=== PATIENT | male | born 1970 | race Two or more races ===

== ENCOUNTER 2025-05-22 19:51 | Emergency (ER) | payer BC, OTHER ==
[~2025-05-22] VITALS: Ht 200.7 cm; Wt 127.3 kg
[2025-05-22 20:21] LABS: Hematocrit 48.7 % (41.0-53.0); Hemoglobin 16.7 g/dL (13.5-17.5); Mean Corpuscular Hemoglobin 29.3 pg (28.0-32.0); Mean Corpuscular Volume 85.4 fL (80.0-100.0); Nucleated Red Blood Cells % 0.0 %
--- NOTE | 2025-05-22 20:24 | ED.PDOC ---
History of Present Illness HPI Comments 54 y/o obese M presents with 32x hour history of left sided chest and lower abdominal pain and palpitations. Patient endorses on unprovoked onset of symptoms, that have been constant since. Chest pain is a 6-7/10 in severity and pressure-like in quality. Patient also reports intermittent constipation episode s for the past few days in addition to 1x isolated episode of self-induced vomiting in an attempt to relieve pain to no avail. He reports on being sent from [facility] facility after being found with abnormal EKG and elevated WBC of 15.8 when being evaluated for symptoms, earlier, today. Patient reports being given 1g Ivanz IV and 325mg ASA PO at facility prior to leaving. Medical history of aortic aneurysm. Medications: lisinopril-HCTZ, atorvastatin, metformin, Mounjaro, and Jardiance. Denies any nausea, vomiting, dizziness, shortness of breath, or further associated symptoms. Chief Complaint: Chest Pain Time Seen by MD: 20:00 Reviewed Notes: Nurses Notes, Medications, Allergies Allergies: Coded Allergies: NO KNOWN ALLERGIES (Unverified , 05/22/25) Information Source: Patient Mode of Arrival: Ambulatory Severity: Moderate Timing: Days Duration: Since onset Prehospital treatment: 12 Lead EKG Past Medical History PAST MEDICAL HISTORY: DM Past Medical History (Other): enlarged aorta Surgical History: Denies all surgeries Family History Family History: Unknown Social History Smoker: Non-Smoker Alcohol: Denies ETOH Use Drugs: Denies Drug Use Lives In: Home All Other Systems: Reviewed and Negative (Comprehensive systems review obtained and negative except for what is stated in the HPI.) Physical Exam General Appearance: No Apparent Distress, Obese HEENT: Normal ENT Inspection, Pharynx Normal, TMs Normal Neck: Full Range of Motion, Non-Tender, Normal, Normal Inspection Respiratory: Chest Non-Tender, Lungs Clear, No Accessory Muscle Use, No Respiratory Distress, Normal Breath Sounds Cardiovascular: No Edema, No JVD, No Murmur, No Gallop, Normal Peripheral Pulses, Tachycardia, Other (Regular rhythm) Breast Exam: Deferred Gastrointestinal: No Organomegaly, Non Tender, No Pulsatile Mass, Normal Bowel Sounds, Soft Genitalia: Deferred Pelvic: Deferred Rectal: Deferred Extremities: No calf tenderness, Normal capillary refill, Normal inspection, Normal range of motion, Non-tender, No pedal edema Musculoskeletal : Apperance: Normal Neurologic: Alert, make up girl II-XII nml as Tested, No Motor Deficits, Normal Affect, Normal Mood, No Sensory Deficits Cerebellar Function: Normal Reflexes: Normal Skin: Dry, Normal Color, Warm Lymphatic: No Adenopathy Was a procedure done? Was a procedure done?: No EKG EKG : Pulse Rate (adult): 117 [place]: Normal Cardiac Rhythm: ST Block: None Hypertrophy: None ST: Normal Differential Dx Considerations may include: VA, PE, ACS, URI, PNA, anxiety, angina, costochondritis, pericarditis, viral syndrome, among others X-Ray, Labs, Meds, VS Vital Signs Date Time Temp Pulse Resp B/P (MAP) Pulse Ox O2 Delivery O2 Flow Rate FiO2 05/22/25 23:07 103 18 125/71 (89) 99 05/22/25 22:51 100 05/22/25 21:40 99.6 116 18 103/66 (78) 96 99.6 05/22/25 21:40 116 18 96 Room Air 05/22/25 20:57 124 05/22/25 20:24 117 05/22/25 20:03 99.4 129 20 114/81 (92) 96 99.4 05/22/25 19:56 117 Lab Test 05/22/25 23:20 05/22/25 21:00 05/22/25 20:24 05/22/25 20:06 Range/Units Troponin I High Sensitivity 6 6 6 </=54 ng/L Lactic Acid Level 1.1 0.4-2.0 mmol/L White Blood Count 16.3 H 4.4-10.8 10^3/uL Red Blood Count 5.70 4.5-5.90 10^6/uL Hemoglobin 16.7 13.5-17.5 g/dL Hematocrit 48.7 41.0-53.0 % Mean Corpuscular Volume 85.4 80.0-100.0 fL Mean Corpuscular Hemoglobin 29.3 28.0-32.0 pg Mean Corpuscular Hemoglobin Concent 34.3 32.0-36.0 g/dL Red Cell Distribution Width 14.2 11.8-14.3 % Platelet Count 263 140-450 10^3/uL Mean Platelet Volume 7.9 6.9-10.8 fL Neutrophils (%) (Auto) 81.0 H 37.0-80.0 % Lymphocytes (%) (Auto) 9.8 L 10.0-50.0 % Monocytes (%) (Auto) 8.9 0.0-12.0 % Eosinophils (%) (Auto) 0.1 0.0-7.0 % Basophils (%) (Auto) 0.2 0.0-2.0 % Neutrophils # (Auto) 13.2 H 1.6-8.6 10 ^3/uL Lymphocytes # (Auto) 1.6 0.4-5.4 10 ^3/uL Monocytes # (Auto) 1.5 H 0-1.3 10 ^3/uL Eosinophils # (Auto) 0 0-0.8 10 ^3/uL Basophils # (Auto) 0 0-0.2 10 ^3/uL Nucleated Red Blood Cells 0.0 % Sodium Level 136 136-145 mmol/L Potassium Level 4.1 3.5-5.1 mmol/L Chloride Level 99 98-107 mmol/L Carbon Dioxide Level 28 20-31 mmol/L Anion Gap 9 5-15 Blood Urea Nitrogen 18 9-23 mg/dL Creatinine 0.91 0.700-1.30 mg/dL Glomerular Filtration Rate Calc 100 >90 mL/min BUN/Creatinine Ratio 19.8 10.0-20.0 Serum Glucose 111 H 74-106 mg/dL Calcium Level 10.4 8.7-10.4 mg/dL Current Medications Medications (Trade) Dose Ordered Sig/Winston Route Start Time Stop Time Status Last Admin Sodium Chloride 2,000 ml @ 1,000 mls/hr Q2H ONCE IV 05/22/25 20:15 05/22/25 22:14 DC 05/22/25 21:45 Sodium Chloride 1,000 ml @ 1,000 mls/hr Q1H ONCE IV 05/22/25 21:15 05/22/25 22:14 DC 05/22/25 21:[address] [address] Ph: [phone] DIAGNOSTIC IMAGING Diagnostic Imaging Report : [id number] Signed PATIENT: SANG TAVARES ACCT: [id number] UNIT: [id number] : 1970 LOC: ER ROOM / BED: / AGE / SEX: 54 / M ADM STATUS: REG ER SERVICE 03 ORDERING PHYSICIAN: ASHLI OKEEFE MD PROCEDURE(s): CXRP - CHEST PORTABLE REASON: chest pain ORDER NUMBER(s): [id number], ACCESSION NUMBER(s): [id number] EXAM: XY CHEST PORTABLE CLINICAL HISTORY: chest pain TECHNIQUE: Single AP view of the chest WID: COMPARISON: None FINDINGS: Lines and tubes: None Chest: The heart size and pulmonary vasculature is within normal limits. No pleural effusion, pneumothorax, or consolidation. The osseous structures are grossly intact. IMPRESSION: No acute cardiopulmonary abnormality. ATED BY: AMBER DOMÍNGUEZ MD DICTATED DATE/TIME: 05/22/252037 SIGNED BY: AMBER DOMÍNGUEZ MD SIGNED DATE/TIME: 05/22/252037 CC: Time of 1ST Reevaluation: 20:30 Reevaluation 1ST: Unchanged Patient Education/Counseling: Diagnosis, Treatment Family Education/Counseling: No Family Present Additional Information Previous visits reviewed: N/A The following tests were ordered, and results were reviewed by me: CXR, EKG, CBC, BMP, UA, blood culture, lactic acid w/ reflex Additional Information was gathered from interviewing the following independent historians: N/A I reviewed and agreed with the following test results read by other providers: CXR I discussed treatment and results with medical personnel and: patient SEPSIS Sepsis Screen Physician Orders Electrocardigram (05/22/25 19:56) Electrocardigram (05/22/25 20:56) Electrocardigram (05/22/25 22:56) Blood Culture (05/22/25 20:04) Chest Portable (05/22/25 20:04) Urinalysis (05/22/25 20:41) Ct Ab Pel With Iv Con Only (05/22/25 21:05) Vital Signs Date Time Temp Pulse Resp B/P (MAP) Pulse Ox O2 Delivery O2 Flow Rate FiO2 05/22/25 23:07 103 18 125/71 (89) 99 05/22/25 22:51 100 05/22/25 21:40 99.6 116 18 103/66 (78) 96 99.6 05/22/25 21:40 116 18 96 Room Air 05/22/25 20:57 124 05/22/25 20:24 117 05/22/25 20:03 99.4 129 20 114/81 (92) 96 99.4 05/22/25 19:56 117 Laboratory Tests Test 05/22/25 20:06 05/22/25 20:24 White Blood Count 16.3 10^3/uL (4.4-10.8) H Lactic Acid Level 1.1 mmol/L (0.4-2.0) Medications Medications Dose Ordered Sig/Winston Route Start Time Stop Time Status Last Admin Dose Admin Sodium Chloride 1,000 ml @ 1,000 mls/hr Q1H ONCE IV 05/22/25 21:15 05/22/25 22:14 DC 05/22/25 21:45 Sodium Chloride 2,000 ml @ 1,000 mls/hr Q2H ONCE IV 05/22/25 20:15 05/22/25 22:14 DC 05/22/25 21:45 Departure 1 Departure Time of Disposition: 01:04 (Patient with chest pain abdominal pain. CT scan has now resulted yet. Patient eloped prior to workup completion.) Impression: Primary Impression: Acute chest pain Additional Impression: Intractable abdominal pain Disposition: LEFT AWOL/ELOPED Condition: Serious Critical Care Note Critical Care Time?: Yes Critical care comment: Acute chest pain Authorized and Performed by: Ashli Okeefe MD Total critical care time: Approximately 39 minutes Due to a high probability of clinically significant, life threatening deterioration, the patient required my highest level of preparedness to intervene emergently and I personally spent this critical care time directly and personally managing the patient. This critical care time included obtaining a history; examining the patient; pulse oximetry; ordering and review of studies; arranging urgent treatment with development of a management plan; evaluation of patient's response to treatment; frequent reassessment; and, discussions with other providers. This critical care time was performed to assess and manage the high probability of imminent, life-threatening deterioration that could result in multi-organ failure. It was exclusive of separately billable procedures and treating other patients and teaching time. Please see my other sections and the rest of the note for further information on patient assessment and treatment. Stability Stability form required: No Heart Score Heart Score: Heart Score Response (Comments) Value History Moderate Suspicious 1 EKG Normal 0 Age 45-64 1 Risk Factors 1 or 2 risk factors 1 Troponin Normal limit 0 Total 3 I personally scribed for ASHLI OKEEFE MD ([email or web address]) on 05/22/25 at 20:24. Electronically submitted by Addison Mcdonough ([email or web address]). I personally scribed for ASHLI OKEEFE MD ([email or web address]) on 05/22/25 at 21:25. Electronically submitted by Addison Mcdonough ([email or web address]). ASHLI OKEEFE MD May 22, 2025 20:24
[2025-05-22 20:28] LABS: Chloride 99 mmol/L (98-107); Potassium 4.1 mmol/L (3.5-5.1); Sodium 136 mmol/L (136-145)
[2025-05-22 20:29] LABS: Anion Gap 9 (5-15); Carbon Dioxide 28 mmol/L (20-31)
[2025-05-22 20:34] LABS: BUN/Creatinine Ratio 19.8 (10.0-20.0); Blood Urea Nitrogen 18 mg/dL (9-23)
--- NOTE | 2025-05-22 20:41 | DVH ---
EXAM: XY CHEST PORTABLE CLINICAL HISTORY: chest pain TECHNIQUE: Single AP view of the chest WID: COMPARISON: None FINDINGS: Lines and tubes: None Chest: The heart size and pulmonary vasculature is within normal limits. No pleural effusion, pneumothorax, or consolidation. The osseous structures are grossly intact. IMPRESSION: No acute cardiopulmonary abnormality.
[2025-05-22 20:45] LABS: Calcium 10.4 mg/dL (8.7-10.4); Glucose 111 mg/dL (74-106)
[2025-05-22] MEDS: IOHEXOL 300 MG/ML 100ML BOTTLE IJ ONE (21:22)
[2025-05-22 21:40] VITALS: TEMP 99.6
[2025-05-22] MEDS: SODIUM CHLORIDE 0.9% 2,000 ML IV ONE (21:45)
[2025-05-22] MEDS: SODIUM CHLORIDE 0.9% 1,000 ML IV ONE (21:45)
[2025-05-22 23:07] VITALS: BP 125/71; PULSE 103; RESP 18; O2SAT 99
--- NOTE | 2025-05-23 01:15 | DVH ---
CLINICAL HISTORY: abdominal pain TECHNIQUE: CT of the abdomen and pelvis was performed with intravenous contrast. 90 mL Omnipaque 300 injected. This exam was performed according to our departmental dose optimization program. Up-to-date CT equipment and radiation dose reduction techniques are utilized as appropriate. CTDIVol: 25.56 mGy DLP: 1479.27 mGy-cm WID: COMPARISON: None FINDINGS: Lower Thorax: Trace pericardial fluid. Normal-sized heart. Lung bases are clear. Liver and Biliary system: Mild hepatomegaly, otherwise unremarkable. Spleen: Mild splenomegaly. Hypodense lesion in the anterior spleen. Adrenal Glands and Kidneys: Unremarkable. Pancreas and Retroperitoneum: Enlargement of the pancreas with peripancreatic soft tissue stranding m ost pronounced about the distal body . No retroperitoneal fluid collection or lymphadenopathy. Aorta and Major Vessels: Aortoiliac vessels are patent and normal caliber with mild calcified atheros clerotic plaque. Bowel, Mesentery and Peritoneal space: Normal caliber small and large bowel. Mild distal colonic dive rticulosis. Normal appendix. No free air or fluid collection. Pelvis: Unremarkable. Abdominal wall and Osseous Structures: Small fat containing bilateral inguinal and umbilical hernias. Multilevel lower thoracic and lumbar spondylosis. Marked degenerative disc space narrowing at L3-L4 , L4-L5, and L5-S1. No destructive osseous lesion. IMPRESSION: 1. Acute interstitial edematous pancreatitis in the distal body. 2. Mild hepatosplenomegaly. 3. Mild distal colonic diverticulosis.
--- NOTE | 2025-05-23 01:36 | ECG ---
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
--- NOTE | 2025-05-23 06:13 | ECG ---
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
--- NOTE | 2025-05-23 06:14 | ECG ---
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
[2025-05-23] MEDS ORDERED: EMPA1TAB PO (20:39)
[2025-05-23] MEDS ORDERED: TIRZ15IN (20:39)
== END 2025-05-23 00:30 | disposition left against medical advice (07) ==
LOC: ER 19:51
DX: R07.89 Other chest pain (principal); R10.30 Lower abdominal pain, unspecified; E11.9 Type 2 diabetes mellitus without complications
CPT/HCPCS: 36415; 71045; 74177; 80048; 83605; 84484; 85025; 87040; 93005; 96360; 99285; J7030; Q9967

== ENCOUNTER 2025-05-23 10:50 | Inpatient (IN) | payer BC ==
[~2025-05-23] VITALS: Ht 200.7 cm; Wt 129.0 kg
--- NOTE | 2025-05-23 11:19 | ED.PDOC ---
HPI Comments This is a 54-year-old male who comes in with chief complaint of chest pain. The patient states that the chest pain started approximately 48 hours ago while he was driving. He has a history of chest pain but has never been this bad. The patient states that the pain is sharp and rated as a 7/10. There has been no radiation, nausea, vomiting or shortness for breath. The patient is having some lower abdominal pain as well. He was seen yesterday in our emergency department's and had a workup done. The patient stated that he had to leave but now the pain has been persistent so he had to return to the emergency department's for evaluation. The patient was also seen yesterday at an urgent care and was told that he had an infection based on leukocytosis and was given an injection of an unknown antibiotic. Chief Complaint: Chest Pain Time Seen by MD: 10:56 Reviewed Notes: Nurses Notes, Medications, Allergies (No allergies to medications) Allergies: Coded Allergies: NO KNOWN ALLERGIES (Unverified , 05/22/25) Information Source: Patient Mode of Arrival: Ambulatory Severity: Moderate Timing: Days Duration: Since onset Prehospital treatment: None Location: Chest (L) Radiation: No Radiation Quality: Squeezing, Pressure Onset: At Rest Cardiac Risk Factors: Family History, HTN, Diabetes PE Risk Factors: None History of: Similar pain in past Modifying Factors: Nothing Associated Signs and Symptoms: None Past Medical History PAST MEDICAL HISTORY: DM, HTN Surgical History: Denies all surgeries Family History Family History: Family hx of DM, Family hx of Cancer, Family hx of heart jacy Social History Smoker: Quit Greater Than 1 Year Alcohol: Occasionally Drugs: Denies Drug Use Lives In: Home Constitutional: denies: chills, diaphoresis, fatigue, fever, malaise, sweats, weakness, others EENTM: denies: blurred vision, double vision, ear bleeding, ear discharge, ear drainage, ear pain, ear ringing, eye pain, eye redness, hearing loss, mouth pain, mouth swelling, nasal discharge, nose bleeding, nose congestion, nose pain, photophobia, tearing, throat pain, throat swelling, voice changes, others Respiratory: denies: cough, hemoptysis, orthopnea, SOB at rest, shortness of breath, SOB with excertion, stridor, wheezing, others Cardiovascular: reports: chest pain; denies: dizzy spells, diaphoresis, Dyspnea on exertion, edema, irregular heart beat, left arm pain, lightheadedness, palpitations, PND, syncope, others Gastrointestinal: reports: abdominal pain; denies: abdomen distended, blood streaked bowels, constipated, diarrhea, dysphagia, difficulty swallowing, hematemesis, melena, nausea, poor appetite, poor fluid intake, rectal bleeding, rectal pain, vomiting, others Genitourinary: denies: burning, dysuria, flank pain, frequency, hematuria, in continence, penile discharge, penile sore, pain, testicle pain, testicle swelling, urgency, others Neurological: denies: dizziness, fainting, headache, left sided numbness, left sided weakness, numbness, paresthesia, pre-existing deficit, right sided numbness, right sided weakness, seizure, speech problems, tingling, tremors, weakness, others Musculoskeletal: denies: back pain, gout, joint pain, joint swelling, muscle pain, muscle stiffness, neck pain, others Integumetry: denies: bruises, change in color, change in hair/nails, dryness, laceration, lesions, lumps, rash, wounds, others Allergic/Immunocompromised: denies: Difficulty Healing, Frequent Infections, Hives, Itching, others Hematologic/Lymphatic: denies: anemia, blood clots, easy bleeding, easy bruising, swollen glands, others Endocrine: denies: excessive hunger, excessive sweating, excessive thirst, excessive urination, flushing, intolerance to cold, intolerance to heat, unexplained weight gain, unexplained weight loss, others Psychiatric: denies: anxiety, bipolar disorder, depression, hopeless, panic disorder, schizophrenia, sleepless, suicidal, others Physical Exam General Appearance: Moderate Distress, Obese HEENT: Normal ENT Inspection, Pharynx Normal, TMs Normal Neck: Full Range of Motion, Non-Tender, Normal, Normal Inspection Respiratory: Chest Non-Tender, Lungs Clear, No Accessory Muscle Use, No Respiratory Distress, Normal Breath Sounds Cardiovascular: No Edema, No JVD, No Murmur, No Gallop, Normal Peripheral Pulses, Regular Rate/Rhythm Breast Exam: Deferred Gastrointestinal: Epigastric, No Organomegaly, No Pulsatile Mass, Normal Bowel Sounds, Soft, Tenderness Genitalia: Deferred Pelvic: Deferred Rectal: Deferred Extremities: No calf tenderness, Normal capillary refill, Normal inspection, Normal range of motion, Non-tender, No pedal edema Musculoskeletal : Apperance: Normal Neurologic: Alert, co teacher II-XII nml as Tested, No Motor Deficits, Normal Affect, Normal Mood, No Sensory Deficits Cerebellar Function: Normal Reflexes: Normal Skin: Dry, Normal Color, Warm Lymphatic: No Adenopathy EKG EKG : Pulse Rate (adult): 104 Ward: Normal Cardiac Rhythm: ST Block: None ST: Nonsp Was a procedure done? Was a procedure done?: No CP Differential Dx Differential Diagnosis: Angina, [place], Pulmonary Embolus Differential Diagnosis: CHF Differential Diagnosis: Pericarditis X-Ray, Labs, Meds, VS Vital Signs Date Time Temp Pulse Resp B/P (MAP) Pulse Ox O2 Delivery O2 Flow Rate FiO2 05/23/25 11:19 104 05/23/25 11:04 97.8 112 18 120/72 (88) 95 97.8 05/23/25 10:56 109 Lab Test 05/23/25 12:11 05/23/25 11:13 Range/Units White Blood Count 14.5 H 4.4-10.8 10^3/uL Red Blood Count 5.43 4.5-5.90 10^6/uL Hemoglobin 16.1 13.5-17.5 g/dL Hematocrit 46.4 41.0-53.0 % Mean Corpuscular Volume 85.4 80.0-100.0 fL Mean Corpuscular Hemoglobin 29.7 28.0-32.0 pg Mean Corpuscular Hemoglobin Concent 34.7 32.0-36.0 g/dL Red Cell Distribution Width 14.0 11.8-14.3 % Platelet Count 235 140-450 10^3/uL Mean Platelet Volume 7.8 6.9-10.8 fL Neutrophils (%) (Auto) 76.3 37.0-80.0 % Lymphocytes (%) (Auto) 13.0 10.0-50.0 % Monocytes (%) (Auto) 9.2 0.0-12.0 % Eosinophils (%) (Auto) 0.6 0.0-7.0 % Basophils (%) (Auto) 0.9 0.0-2.0 % Neutrophils # (Auto) 11.0 H 1.6-8.6 10 ^3/uL Lymphocytes # (Auto) 1.9 0.4-5.4 10 ^3/uL Monocytes # (Auto) 1.3 0-1.3 10 ^3/uL Eosinophils # (Auto) 0.1 0-0.8 10 ^3/uL Basophils # (Auto) 0.1 0-0.2 10 ^3/uL Nucleated Red Blood Cells 0.0 % Sodium Level Pending Potassium Level Pending Chloride Level Pending Carbon Dioxide Level Pending Anion Gap Pending Blood Urea Nitrogen Pending Creatinine Pending Glomerular Filtration Rate Calc Pending BUN/Creatinine Ratio Pending Serum Glucose Pending Hemoglobin A1c Pending Calcium Level Pending Total Bilirubin Pending Aspartate Amino Transferase (AST) Pending Alanine Aminotransferase (ALT) Pending Alkaline Phosphatase Pending Troponin I High Sensitivity Pending 6 </=54 ng/L Total Protein Pending Albumin Pending Triglycerides Level Pending Cholesterol Level Pending LDL Cholesterol Pending HDL Cholesterol Pending Lipase Pending Thyroid Stimulating Hormone (TSH) Pending Free Thyroxine (T4) Calculated Pending IV Hep-Lock was established The CAT scan of the abdomen and pelvis shows: IMPRESSION: 1. Acute interstitial edematous pancreatitis in the distal body. 2. Mild hepatosplenomegaly. 3. Mild distal colonic diverticulosis. This CAT scan was done yesterday. The chest x-ray was negative Yesterday CBC showed a 16.3 white blood cell count An IV Hep-Lock has been established The patient is being given morphine 4 mg IV push for the pain The patient was also given Zofran and Protonix IV push The patient is being admitted at this time Images Reviewed?: Images reviewed and evaluated by me Time of 1ST Reevaluation: 11:17 Reevaluation 1ST: Improved Patient Education/Counseling: Diagnosis, Treatment, Prognosis Family Education/Counseling: No Family Present SEPSIS Sepsis Screen Physician Orders Electrocardigram (05/23/25 13:58) Troponin-I Hs (05/23/25 11:58) Troponin-I Hs (05/23/25 13:58) Electrocardigram (05/23/25 10:58) Electrocardigram (05/23/25 11:58) Heplock Iv (05/23/25 ) Comprehensive Metabolic Panel (05/23/25 11:19) Lipase (05/23/25 11:19) Chest Xray 1 View (05/23/25 11:38) Urinalysis (05/23/25 11:39) Drug Screen (05/23/25 11:39) Thyroid Stimulating Hormone (05/23/25 11:39) Lipid Panel (05/23/25 11:39) Free T4 (Free Thyroxine) (05/23/25 11:39) Hemoglobin A1c (05/23/25 11:39) Vital Signs Date Time Temp Pulse Resp B/P (MAP) Pulse Ox O2 Delivery O2 Flow Rate FiO2 05/23/25 11:19 104 05/23/25 11:04 97.8 112 18 120/72 (88) 95 97.8 05/23/25 10:56 109 Laboratory Tests Test 05/23/25 12:11 White Blood Count 14.5 10^3/uL (4.4-10.8) H Departure 1 Departure Time of Disposition: 11:18 Impression: Primary Impression: Acute chest pain Additional Impressions: Intractable abdominal pain Acute pancreatitis Qualified Codes: K85.90 - Acute pancreatitis without necrosis or infection, unspecified Disposition: 09 ADMITTED INPATIENT Admit to: Tele Condition: Fair Critical Care Note Critical Care Time?: Yes (35 min-critical care time only) Stability Stability form required: Yes Unstable for transfer: Telemetry monitoring (Telemetry monitoring required), ED Physician Assesment (Clinical assesment) Heart Score Heart Score: Heart Score Response (Comments) Value History Moderate Suspicious 1 EKG Repolarization Disturb 1 Age 45-64 1 Risk Factors >3 or Hx ASHD 2 Troponin Normal limit 0 Total 5 ARACELI IVEY MD May 23, 2025 11:19
[2025-05-23] MEDS: ONDANSETRON HCL 4 MG/2 ML VIAL IV ONE (11:30)
[2025-05-23] MEDS: MORPHINE SULFATE 4 MG/ML SYR/VIAL IV ONE (11:30)
--- NOTE | 2025-05-23 12:08 | DVH ---
EXAM: XY CHEST XRAY 1 VIEW HISTORY: cp COMPARISON: XY CHEST PORTABLE on DOS: 05/22/25 TECHNIQUE: Portable AP view of the chest was performed. FINDINGS: No pneumothorax, consolidative infiltrates, or pulmonary edema. The heart is not enlarged. Displaced right mid clavicular fracture re-identified. There is slight thoracic scoliosis. IMPRESSION: No acute intrathoracic process.
[2025-05-23 12:27] LABS: Hematocrit 46.4 % (41.0-53.0); Hemoglobin 16.1 g/dL (13.5-17.5); Mean Corpuscular Hemoglobin 29.7 pg (28.0-32.0); Mean Corpuscular Volume 85.4 fL (80.0-100.0); Nucleated Red Blood Cells % 0.0 %
[2025-05-23 12:51] LABS: Alanine Aminotransferase 25 U/L (7-40); Albumin 4.7 g/dL (3.2-4.8); Alkaline Phosphatase 95 U/L (46-116); Anion Gap 8 (5-15); BUN/Creatinine Ratio 23.9 (10.0-20.0); Bilirubin, Total 1.2 mg/dL (0.2-1.0); Blood Urea Nitrogen 21 mg/dL (9-23); Calcium 10.2 mg/dL (8.7-10.4); Carbon Dioxide 27 mmol/L (20-31); Chloride 101 mmol/L (98-107); Glucose 90 mg/dL (74-106); Potassium 4.2 mmol/L (3.5-5.1); Sodium 136 mmol/L (136-145); Total Protein 7.3 g/dL (5.7-8.2)
[2025-05-23 13:02] LABS: Lipase 54 U/L (12-53)
[2025-05-23 13:09] LABS: Triglycerides 63 mg/dL (< 150)
[2025-05-23 13:11] LABS: Cholesterol 157 mg/dL (< 200)
[2025-05-23 13:13] LABS: HDL Cholesterol 62 mg/dL (40-59)
[2025-05-23] MEDS: PANTOPRAZOLE 40 MG/10 ML VIAL INJ IV ONE (15:45)
[2025-05-23] MEDS ORDERED: MORPHINE SULFATE INJ 2 MG/ml SYRG IV PRN (16:00)
[2025-05-23] MEDS ORDERED: MORPHINE SULFATE 4 MG/ML SYR/VIAL IV PRN (16:00)
[2025-05-23] MEDS ORDERED: ONDANSETRON HCL 4 MG/2 ML VIAL IV PRN (16:00)
[2025-05-23] MEDS ORDERED: NITROGLYCERIN 0.4 MG SL TAB SL PRN ×2 (16:00)
[2025-05-23] MEDS ORDERED: ACETAMINOPHEN 325 MG TAB PO PRN (16:00)
[2025-05-23 16:38] LABS: Urine Protein, UAD Negative (Negative)
--- NOTE | 2025-05-23 16:42 | DVHHP2 ---
History of Present Illness Reason for Visit: Chest pain History of Present Illness Samir Gabriel is a 54YO M with pmHx of HTN, DM, Left pinky trigger finger, and right pinky trigger finger who presents to the ED with chest pain while driving his car. He reports his current pain is 3/10 pressure like and intermittent. He reports that there are no triggering or alleviating factors. Patient also endorses that he lives at home with his . He states that he drinks about 3- 4 shots of Tequila per weekend. He also endorses that he quit smoking cigarettes 3 years ago and does not use illicit drugs. Patient denies any shortness of breath cough, recent trauma or injury, recent sick contacts, recent travels, recent ingestion of spoiled food, fever, chills, lightheadedness, weakness, dizziness, abdominal pain, nausea, vomiting, diarr hea, or urinary symptoms. Cardiovascular: HTN Endocrine: Diabetes Past Medical History Left pinky trigger finger Right pinky trigger finger Family History: Cancer, DM, Other (Mom with diabetes. Dad with bladder cancer and heart disease.) Smoke: Quit ALCOHOL: occassional Drugs: None Lives: with Family Domestic Violence: Neg Review of Systems Cardiovascular: Chest Pain Allergies: Coded Allergies: NO KNOWN ALLERGIES (Unverified , 05/22/25) Medications Current Medications Medications Dose Ordered Sig/Winston Route Start Time Stop Time Status Last Admin Dose Admin Aspirin 81 mg DAILY PO 05/24/25 10:00 UNV Atorvastatin Calcium 40 mg HS PO 05/23/25 22:00 UNV Morphine Sulfate 2 mg Q30MP PRN IV 05/23/25 16:00 UNV Acetaminophen 650 mg Q6HP PRN PO 05/23/25 16:00 UNV Nitroglycerin 0.4 mg Q5MINP PRN SL 05/23/25 16:00 UNV Ondansetron HCl 4 mg Q4HP PRN IV 05/23/25 16:00 UNV Nitroglycerin 0.4 mg Q5MINP PRN SL 05/23/25 16:00 UNV Morphine Sulfate 2 mg Q30M PRN IV 05/23/25 16:00 UNV Hydrochlorothiazide 25 mg DAILY PO 05/24/25 10:00 UNV Lisinopril 20 mg DAILY PO 05/24/25 10:00 UNV Exam Vital Signs Vital Signs Date Time Temp Pulse Resp B/P (MAP) Pulse Ox O2 Delivery O2 Flow Rate FiO2 05/23/25 15:35 102 18 115/66 (82) 95 05/23/25 15:35 Room Air* 0 21 05/23/25 13:37 99.2 99.2 General Appearance: Alert, Oriented X3, Cooperative, No acute distress HEENT: Atraumatic, PERRLA, EOMI, Mucous membr. moist/pink Respiratory: Clear to auscultation, Normal air movement Cardiovascular: Normal S1, Normal S2, No murmurs Abdominal: Normal bowel sounds, Soft Extremities: No clubbing, No cyanosis, No edema, Normal pulses Skin: No significant lesion Neuro: Normal gait, Normal speech, Strength at 5/5 X4 ext, Normal tone, Sensation intact Psych/Mental Status: Mental status NL, Mood NL Labs/Xrays Labs Test 05/23/25 14:40 05/23/25 12:11 Range/Units Troponin I High Sensitivity 6 </=54 ng/L White Blood Count 14.5 H 4.4-10.8 10^3/uL Red Blood Count 5.43 4.5-5.90 10^6/uL Hemoglobin 16.1 13.5-17.5 g/dL Hematocrit 46.4 41.0-53.0 % Mean Corpuscular Volume 85.4 80.0-100.0 fL Mean Corpuscular Hemoglobin 29.7 28.0-32.0 pg Mean Corpuscular Hemoglobin Concent 34.7 32.0-36.0 g/dL Red Cell Distribution Width 14.0 11.8-14.3 % Platelet Count 235 140-450 10^3/uL Mean Platelet Volume 7.8 6.9-10.8 fL Neutrophils (%) (Auto) 76.3 37.0-80.0 % Lymphocytes (%) (Auto) 13.0 10.0-50.0 % Monocytes (%) (Auto) 9.2 0.0-12.0 % Eosinophils (%) (Auto) 0.6 0.0-7.0 % Basophils (%) (Auto) 0.9 0.0-2.0 % Neutrophils # (Auto) 11.0 H 1.6-8.6 10 ^3/uL Lymphocytes # (Auto) 1.9 0.4-5.4 10 ^3/uL Monocytes # (Auto) 1.3 0-1.3 10 ^3/uL Eosinophils # (Auto) 0.1 0-0.8 10 ^3/uL Basophils # (Auto) 0.1 0-0.2 10 ^3/uL Nucleated Red Blood Cells 0.0 % Sodium Level 136 136-145 mmol/L Potassium Level 4.2 3.5-5.1 mmol/L Chloride Level 101 98-107 mmol/L Carbon Dioxide Level 27 20-31 mmol/L Anion Gap 8 5-15 Blood Urea Nitrogen 21 9-23 mg/dL Creatinine 0.88 0.700-1.30 mg/dL Glomerular Filtration Rate Calc 102 >90 mL/min BUN/Creatinine Ratio 23.9 H 10.0-20.0 Serum Glucose 90 74-106 mg/dL Hemoglobin A1c 5.1 <5.7 % A1C Calcium Level 10.2 8.7-10.4 mg/dL Total Bilirubin 1.2 H 0.2-1.0 mg/dL Aspartate Amino Transferase (AST) 15 13-40 U/L Alanine Aminotransferase (ALT) 25 7-40 U/L Alkaline Phosphatase 95 46-116 U/L Total Protein 7.3 5.7-8.2 g/dL Albumin 4.7 3.2-4.8 g/dL Triglycerides Level 63 < 150 mg/dL Cholesterol Level 157 < 200 mg/dL LDL Cholesterol 86 < 100 mg/dL HDL Cholesterol 62 H 40-59 mg/dL Lipase 54 H 12-53 U/L Thyroid Stimulating Hormone (TSH) 2.28 0.55-4.78 uIU/mL Free Thyroxine (T4) Calculated 1.11 0.89-1.76 ng/dL EXAM: XY CHEST XRAY 1 VIEW HISTORY: cp COMPARISON: XY CHEST PORTABLE on DOS: 05/22/25 TECHNIQUE: Portable AP view of the chest was performed. FINDINGS: No pneumothorax, consolidative infiltrates, or pulmonary edema. The heart is not enlarged. Displaced right mid clavicular fracture re-identified. There is slight thoracic scoliosis. IMPRESSION: No acute intrathoracic process. Assessment/Plan Assessment/Plan Assessment Chest pain Leukocytosis unclear etiology Hyperbilirubinemia Hyperlipasemia Alcohol use Ex-smoker Obesity History of hypertension History of diabetes type 2 History of left pinky trigger finger History of right pinky trigger finger Plan Admit to tele Antiemetics Pain management Troponins EKG Chest x-ray UA UDS TSH Lipid panel Free T4 Hemoglobin A1c ISS and Accu-Cheks Echo ordered Diet DVT prophylaxis-not indicated patient ambulating PUD prophylaxis-PPIs Discussed plan of care with patient and nurse Counseled patient on cessation of alcohol use Counseled patient on lifestyle modifications, diet, and exercise [id number] Advanced care planning discussed [id number] Behavior change smoking greater than 10 minutes about use of other options also gave option of nicotine patch [id number] Preventive counseling healthy eating habits, physical activity, and regular checkups Plan discussed with: Patient My Orders Orders - NITESH HERNANDEZ [employer] Procedure Category Date Status Time Chest Xray 1 View XY 05/23/25 Resulted 11:38 Urinalysis LAB 05/23/25 Logged 11:39 Drug Screen LAB 05/23/25 Logged 11:39 Admit ADMIT 05/23/25 Transmitted 15:59 Code Status CODE 05/23/25 Transmitted 15:59 Vital Signs ARAMIS 05/23/25 In Process 15:59 Data Control Clerk ARAMIS 05/23/25 In Process 15:59 Cardiac DIET 05/23/25 Transmitted Diet-2gna,Lofat,Lochol Dinner Aspirin Tablet PHA 05/24/25 Logged 10:00 Atorvastatin (Lipitor) PHA 05/23/25 Logged 22:00 Morphine Sulfate PHA 05/23/25 Logged Injection 16:00 Acetaminophen Tablet PHA 05/23/25 Logged (Tylenol Tablet) 16:00 Complete Blood Count LAB 05/24/25 Verified 04:00 Basic Metabolic Panel LAB 05/24/25 Verified 04:00 Magnesium LAB 05/24/25 Verified 04:00 Lipid Panel LAB 05/24/25 Verified 04:00 Echo 2d Mode Cardiac US 05/23/25 Logged DOP 15:59 Nitroglycerin PHA 05/23/25 Logged Sublingual (Ntrostat 16:00 Ondansetron Hcl PHA 05/23/25 Logged (Zofran) 16:00 Electrocardigram EKG 05/24/25 Logged 04:00 Cardiac ARAMIS 05/23/25 In Process Rehabilitation - Outpa Nitroglycerin PHA 05/23/25 Logged Sublingual (Ntrostat 16:00 Morphine Sulfate PHA 05/23/25 Logged Injection 16:00 Stat Ekg For Chest ARAMIS 05/23/25 In Process Pain 15:59 Notify Of Changes ARAMIS 05/23/25 In Process From Base 15:59 Pyrotechnic Assembler For [facility] 05/23/25 In Process 24 Hours 15:59 Emergency Dysrhythmia [facility] 05/23/25 In Process Protocol 15:59 Rhythm Strips Once [facility] 05/23/25 In Process Every Shift 15:59 Oxygen By Nasal RT 05/23/25 Transmitted Cannula 15:59 Urinalysis LAB 05/23/25 Logged 15:59 Drug Screen LAB 05/23/25 Logged 15:59 Hydrochlorothiazide [facility] 05/24/25 Logged Tablet (Hydrochlorot 10:00 Lisinopril Tablet [facility] 05/24/25 Logged (Zestril Tablet) 10:00 Date of Service: May 23, 2025 Billing Provider: NITESH HERNANDEZ Common Visit Codes: 27957-NCZMPTN INP/OBS CARE (HIGH) Secondary Visit Codes: 05119-[id number] COUNSELING IND, 03501-AIXUR CHNG SMOKING >10MIN, 26113-HNEZFKNK CARE PLAN 30 MINUTES NITESH HERNANDEZ May 23, 2025 16:42
[2025-05-23 16:52] LABS: Amphetamine Screen, Urine Neg (NEGATIVE); Barbiturate Scree,Urine Neg (NEGATIVE); Benzodiazephine Screen, Urine Neg (NEGATIVE); Cannabinoid Screen, Urine Neg (NEGATIVE); Cocaine Screen, Urine Neg (NEGATIVE); Opiate Scree,Urine Neg (NEGATIVE); Phencyclidine Screen, Urine Neg (NEGATIVE)
[2025-05-23 17:46] VITALS: BP 115/77; PULSE 95; RESP 18; TEMP 97.8; O2SAT 96
[2025-05-23] MEDS: cefTRIAXone 1GM/50ML D5W 50 ML IV SCH (17:47)
--- NOTE | 2025-05-23 19:26 | ECG ---
[facility] Test Date: 2025-05-23 Test Time: 10:56:55 Pat Name: SANG TAVARES Department: ER Room: 0296T A Gender: M Living Nurse: : 1970 Requested By: ARACELI IVEY Order Number: [id number] Reading MD: Tom Royal Measurements Intervals [place] Rate: 109 P: 37 WA: 134 QRS: -56 QRSD: 105 T: 62 QT: 322 QTc: 434 Interpretive Statements Sinus tachycardia Left anterior fascicular block Baseline wander in lead(s) III,V4,V5 Electronically Signed On 05-25-2025 10:22:21 PDT by Tom Royal Please click the below link to view image of tracing.
[2025-05-23 20:00] VITALS: PULSE 91; PULSE 92; RESP 18; O2SAT 97
[2025-05-23] MEDS ORDERED: TIRZ15IN (20:39)
[2025-05-23] MEDS ORDERED: EMPA1TAB PO (20:39)
[2025-05-23 21:00] VITALS: BP 126/82; PULSE 97; RESP 14; TEMP 98.2; O2SAT 97
[2025-05-23] MEDS: ATORVASTATIN 20 MG TAB PO SCH (22:00)
[2025-05-23] MEDS ORDERED: LACTULOSE 20Gm/30ML SOLN PO PRN ×2 (23:45)
[2025-05-24] MEDS: MELATONIN 5 MG TAB PO ONE
[2025-05-24 01:00] VITALS: BP 120/72; PULSE 78; RESP 14; TEMP 98; O2SAT 94
[2025-05-24 05:00] VITALS: BP 135/80; PULSE 96; RESP 14; TEMP 98; O2SAT 98
[2025-05-24 07:08] LABS: Hematocrit 44.8 % (41.0-53.0); Hemoglobin 15.5 g/dL (13.5-17.5); Mean Corpuscular Hemoglobin 29.5 pg (28.0-32.0); Mean Corpuscular Volume 85.5 fL (80.0-100.0); Nucleated Red Blood Cells % 0.0 %
[2025-05-24 07:14] LABS: Chloride 104 mmol/L (98-107); Potassium 3.7 mmol/L (3.5-5.1); Sodium 138 mmol/L (136-145)
[2025-05-24 07:15] LABS: Anion Gap 10 (5-15); Calcium 9.6 mg/dL (8.7-10.4); Carbon Dioxide 24 mmol/L (20-31)
[2025-05-24 07:20] LABS: Glucose 92 mg/dL (74-106); Triglycerides 64 mg/dL (< 150)
[2025-05-24 07:21] LABS: BUN/Creatinine Ratio 25.0 (10.0-20.0); Blood Urea Nitrogen 19 mg/dL (9-23); Magnesium 2.3 mg/dL (1.6-2.6)
[2025-05-24 07:22] LABS: Cholesterol 146 mg/dL (< 200); HDL Cholesterol 51 mg/dL (40-59)
[2025-05-24 08:00] VITALS: PULSE 89; PULSE 92; RESP 18; O2SAT 97
[2025-05-24] MEDS: PANTOPRAZOLE 40 MG/10 ML VIAL INJ IV SCH (08:43)
[2025-05-24] MEDS: LISINOPRIL 20 MG TAB PO SCH (08:44)
[2025-05-24] MEDS: hydroCHLOROthiazide 25 MG TAB PO SCH (08:45)
[2025-05-24 09:00] VITALS: BP 122/72; PULSE 43; PULSE 76; RESP 16; TEMP 97.8; O2SAT 98
[2025-05-24] MEDS: NICOTINE 14 MG/24HR TOPICAL PATCH TD ONE (11:37)
[2025-05-24] MEDS: EMPAGLIFLOZIN 10 MG TAB PO SCH (11:37)
--- NOTE | 2025-05-24 12:49 | DVHDS2 ---
Discharge Summary Date of Admission May 23, 2025 at 15:59 Date of Discharge: May 24, 2025 Admitting Diagnosis Chest pain Leukocytosis unclear etiology Hyperbilirubinemia Hyperlipasemia Alcohol use Ex-smoker Obesity History of hypertension History of diabetes type 2 History of left pinky trigger finger History of right pinky trigger finger Labs/Diagnostic Data: Laboratory Results Test 05/24/25 06:21 05/23/25 20:00 05/23/25 16:30 05/23/25 14:40 White Blood Count 10.4 10^3/uL (4.4-10.8) Red Blood Count 5.24 10^6/uL (4.5-5.90) Hemoglobin 15.5 g/dL (13.5-17.5) Hematocrit 44.8 % (41.0-53.0) Mean Corpuscular Volume 85.5 fL (80.0-100.0) Mean Corpuscular Hemoglobin 29.5 pg (28.0-32.0) Mean Corpuscular Hemoglobin Concent 34.6 g/dL (32.0-36.0) Red Cell Distribution Width 14.1 % (11.8-14.3) Platelet Count 223 10^3/uL (140-450) Mean Platelet Volume 8.1 fL (6.9-10.8) Neutrophils (%) (Auto) 73.3 % (37.0-80.0) Lymphocytes (%) (Auto) 16.5 % (10.0-50.0) Monocytes (%) (Auto) 8.4 % (0.0-12.0) Eosinophils (%) (Auto) 1.3 % (0.0-7.0) Basophils (%) (Auto) 0.5 % (0.0-2.0) Neutrophils # (Auto) 7.6 10 ^3/uL (1.6-8.6) Lymphocytes # (Auto) 1.7 10 ^3/uL (0.4-5.4) Monocytes # (Auto) 0.9 10 ^3/uL (0-1.3) Eosinophils # (Auto) 0.1 10 ^3/uL (0-0.8) Basophils # (Auto) 0.1 10 ^3/uL (0-0.2) Nucleated Red Blood Cells 0.0 % Sodium Level 138 mmol/L (136-145) Potassium Level 3.7 mmol/L (3.5-5.1) Chloride Level 104 mmol/L (98-107) Carbon Dioxide Level 24 mmol/L (20-31) Anion Gap 10 (5-15) Blood Urea Nitrogen 19 mg/dL (9-23) Creatinine 0.76 mg/dL (0.700-1.30) Glomerular Filtration Rate Calc 106 mL/min (>90) BUN/Creatinine Ratio 25.0 (10.0-20.0) Serum Glucose 92 mg/dL (74-106) Calcium Level 9.6 mg/dL (8.7-10.4) Magnesium Level 2.3 mg/dL (1.6-2.6) Triglycerides Level 64 mg/dL (< 150) Cholesterol Level 146 mg/dL (< 200) LDL Cholesterol 85 mg/dL (< 100) HDL Cholesterol 51 mg/dL (40-59) Lactic Acid Level 1.0 mmol/L (0.4-2.0) Urine Color Yellow (Yellow) Urine Clarity Clear (Clear) Urine pH 5.5 (5.0-9.0) Urine Specific Pearl 1.022 (1.001-1.035) Urine Protein Negative (Negative) Urine Ketones 1+ (Negative) Urine Blood Trace /uL (Negative) Urine Nitrite Negative (Negative) Urine Bilirubin Negative (Negative) Urine Urobilinogen Normal mg/dL (Negative) Urine Leukocyte Esterase Negative /uL (Negative) Urine RBC <1 /hpf (0 - 3) Urine Microscopic WBC 1 /HPF (0-3) Urine Squamous Epithelial Cells None seen /hpf (<5) Urine Bacteria None seen /hpf (None Seen) Urine Mucus Few (None Seen) Urine Glucose 4+ mg/dL (Normal) Urine Opiates Screen Neg (NEGATIVE) Urine Fentanyl Screen Neg (NEGATIVE) Urine Barbiturates Screen Neg (NEGATIVE) Urine Phencyclidine Screen Neg (NEGATIVE) Urine Amphetamines Screen Neg (NEGATIVE) Urine Benzodiazepines Screen Neg (NEGATIVE) Urine Cocaine Screen Neg (NEGATIVE) Urine Cannabinoids Screen Neg (NEGATIVE) Troponin I High Sensitivity 6 ng/L (</=54) Test 05/23/25 12:11 Hemoglobin A1c 5.1 % A1C (<5.7) Total Bilirubin 1.2 mg/dL (0.2-1.0) Aspartate Amino Transferase (AST) 15 U/L (13-40) Alanine Aminotransferase (ALT) 25 U/L (7-40) Alkaline Phosphatase 95 U/L (46-116) Total Protein 7.3 g/dL (5.7-8.2) Albumin 4.7 g/dL (3.2-4.8) Lipase 54 U/L (12-53) Thyroid Stimulating Hormone (TSH) 2.28 uIU/mL (0.55-4.78) Free Thyroxine (T4) Calculated 1.11 ng/dL (0.89-1.76) Other Laboratory Tests 05/24/25 06:21 Brief Hx & Hospital Course: This is a 54 years old male with past medical history hypertension, diabetes, left pinky trigger finger and right pinky trigger finger come to emergency department with chief complaint of chest pain. Apparently he was driving his car and reports chest pain 3/10 intermittent. Patient had no triggering or alleviating factor. The patient was admitted. Troponin level three set is negative. EKG is normal. No symptoms of chest pain while in the hospital. I am discharge the patient home. Advised the patient to follow up with primary care physician 1-2 weeks. Advised the patient to have an echo as outpatient and Cardiology consult as outpatient. Activity as tolerated. Diet per home diet. Physical exam: HEENT: Normocephalic atraumatic pupils equal react to light and accommodation. Extraocular muscles intact, conjunctiva pink, oropharynx moist, no thrush, no exudate. Lymphatic: No lymphadenopathy Cardiovascular exam: S1, S2 was heard. No murmurs, rubs, gallops Lung: Clear on auscultation bilaterally, no wheeze, rale, rhonchi. GI: Abdominal soft, nondistended, nontenderness, positive bowel sounds. Extremity: No crepitus, cyanosis, edema. Pedal pulses present bilateral. Full range of motion. Skin: Normal turgor, no rash. Psych: Alert, oriented x3. Neurology: No focal deficits, cranial nerve II to XII grossly intact. This medical document was created using an electronic medical record system with [email or web address] direct computerized dictation system. Although this document has been carefully reviewed, there may still be some phonetic and typographical errors. These areas are purely typographical due to imperfections of the software programs, and do not reflect any compromise in the patient's medical care. Condition at Discharge: Stable Final Diagnosis/Problems List Chest pain Leukocytosis unclear etiology Hyperbilirubinemia Hyperlipasemia Alcohol use Ex-smoker Obesity History of hypertension History of diabetes type 2 History of left pinky trigger finger History of right pinky trigger finger Discharge Disposition: Home Discharge Instruct/Medications Scheduled Empagliflozin (Jardiance), 1 TAB PO DAILY, (Reported) Miscellaneous Medications Tirzepatide (Mounjaro), (Reported) Discharge Statement: "Patient was advised to return to the ER or call 911 if any headaches, dizziness, shortness of breath, chest pain, abdominal pain, bleeding, fevers, or worsening of medical condition. Patient was counseled about treatment plan, medications, possible side effects, patientverbalized understanding. All questions were answered to the best of my ability. This discharge took greater then 30 minutes in planning, reviewing documentation, counseling the patient, and discussing with other team members." ASSESSMENT ASSESSMENT Assessment Date of Service: May 24, 2025 Billing Provider: LEANA MONTES MD Common Visit Codes: 44810-VHZ/OBS DISCH DAY >30min LEANA MONTES MD May 24, 2025 12:49
[2025-05-24 13:00] VITALS: BP 105/71; PULSE 86; RESP 18; TEMP 97.4; O2SAT 96
[2025-05-24 13:27] VITALS: BP 122/72
[2025-05-24] MEDS ORDERED: MELATONIN 5 MG TAB PO ONE (22:00)
[2025-05-24] MEDS ORDERED: MELATONIN 5 MG TAB PO SCH (22:00)
[2025-05-25] MEDS ORDERED: NICOTINE 14 MG/24HR TOPICAL PATCH TD SCH (10:00)
== END 2025-05-24 13:50 | disposition home or self-care (01) | DRG 313 ==
LOC: ER 10:50 → OVERFLOW 15:59 → TELE-WESTW 17:35
PROVIDERS: ADMIT Internal Medicine; ATTEND Internal Medicine
DX: R07.89 Other chest pain (principal); K85.90 Acute pancreatitis without necrosis or infection, unspecified; E66.9 Obesity, unspecified; E11.9 Type 2 diabetes mellitus without complications; Z68.37 Body mass index [BMI] 37.0-37.9, adult; I10 Essential (primary) hypertension; E80.6 Other disorders of bilirubin metabolism; D72.829 Elevated white blood cell count, unspecified; Z87.891 Personal history of nicotine dependence; K57.30 Diverticulosis of large intestine without perforation or abscess without bleeding; Z83.3 Family history of diabetes mellitus; Z80.52 Family history of malignant neoplasm of bladder; Z82.49 Family history of ischemic heart disease and other diseases of the circulatory system; Z80.8 Family history of malignant neoplasm of other organs or systems; Z88.8 Allergy status to other drugs, medicaments and biological substances
CPT/HCPCS: 36415; 71045; 80048; 80053; 80061; 80307; 81001; 83036; 83605; 83690; 83735; 84439; 84443; 84484; 85025; 87040; 87086; 93005; 99291; G0378; J2470